=== PATIENT | female | born 2000 | race Caucasian/White ===

== ENCOUNTER 2021-05-31 08:45 | Emergency (ER) | payer MEDICAID ==
[~2021-05-31] VITALS: Ht 172.7 cm; Wt 52.6 kg
--- NOTE | 2021-05-31 09:03 | NUR ---
PATIENT WAS 13 DAYS EARLY FOR PERIOD, THEN GOT PUT ON CONTROL FOR BLEEDING/CLOTS. TODAY ARRIVES WITH ABDOMINAL PAIN NAUSEA, VOMTING, DIARREA AND VAG DISCHARGE.
--- NOTE | 2021-05-31 09:46 | NUR ---
PATIENT UNABLE AT THIS TIME FOR STOOL/URINE SAMPLE,WILL REASSESS AFTER MEDICATIONS.
--- NOTE | 2021-05-31 09:49 | NUR ---
PATIENT ON OBGYN BED AND OB CART IN NROOM
[2021-05-31] MEDS ORDERED: FAMOTIDINE 20 MG/2 ML IVPush ONE (10:00)
[2021-05-31] MEDS ORDERED: SODIUM CHLORIDE 0.9% 1,000ML IVBOLUS ONE (10:00)
[2021-05-31] MEDS ORDERED: HYDROmorphone 1 MG/ML, 1ML INJ IV ONE (10:00)
[2021-05-31] MEDS ORDERED: SODIUM CHLORIDE FLUSH 10ML SYR IVF ONE (10:00)
[2021-05-31] MEDS ORDERED: ONDANSETRON 2MG/ML, 2ML IVPush ONE ×2 (10:00→12:00)
[2021-05-31 10:09] LABS: BASOPHILS % (AUTO) 1 % (0-1); EOSINOPHILS % (AUTO) 0 % (1-7); LYMPHOCYTES % (AUTO) 10 % (22-44); MEAN CORPUSCULAR HEMOGLOBIN 31.2 pg (27.0-34.8); MEAN CORPUSCULAR HGB CONC 33.8 g/dL (32.4-35.8); MEAN PLATELET VOLUME 9.5 fL (7.4-10.4); MONOCYTES % (AUTO) 5 % (2-9); NEUTROPHILS % (AUTO) 84 % (42-75); PLATELET COUNT 289 x10^3/uL (130-400); RED BLOOD COUNT 3.76 x10^6/uL (3.82-5.3); RED CELL DISTRIBUTION WIDTH 13.3 % (9.6-15.2)
[2021-05-31] MEDS ORDERED: FAMOTIDINE 20 MG/2 ML ONE (10:12)
[2021-05-31] MEDS ORDERED: ONDANSETRON 2MG/ML, 2ML ONE ×2 (10:12→11:39)
[2021-05-31 10:13] LABS: ALANINE AMINOTRANSFERASE 24 U/L (12-78); ALBUMIN 4.1 g/dL (3.4-5.0); ANION GAP 11 mmol/L (5-15); CHLORIDE 114 mmol/L (98-107)
[2021-05-31] MEDS ORDERED: HYDROmorphone 2 MG/ML, 1ML ONE (10:13)
[2021-05-31 10:16] LABS: ALKALINE PHOSPHATASE 64 U/L (45-117); BILIRUBIN,TOTAL 0.6 mg/dL (0.2-1.0); TOTAL PROTEIN 7.3 g/dL (6.4-8.2)
[2021-05-31 10:53] LABS: AMPHETAMINE SCREEN, URINE Negative (Negative); BARBITURATE SCREEN, URINE Negative (Negative); BENZODIAZEPINE SCREEN, URINE Negative (Negative); CANNABINOID SCREEN, URINE Positive (Negative); COCAINE SCREEN, URINE Negative (Negative); METHADONE SCREEN, URINE Negative (Negative); OPIATE SCREEN, URINE Negative (Negative)
[2021-05-31 10:59] LABS: MICROSCOPIC INDICATED
--- NOTE | 2021-05-31 11:14 | NUR ---
PATIENT BACK FROM ULTRASOUND. PAIN IMPROVED IS 6/10 BUT HAVING HOT FLASHES.
[2021-05-31 11:15] VITALS: BP 119/59
== END 2021-05-31 13:30 | disposition home or self-care (01) ==
LOC: ED 12:25
DX: E28.2 Polycystic ovarian syndrome (principal)
CPT/HCPCS: 36415; 76830; 80053; 80307; 81001; 83690; 84703; 85025; 96361; 96374; 96375; 96376; 99285; J1170; J2405; J7030

== ENCOUNTER 2021-06-01 04:56 | Emergency (ER) | payer MEDICAID ==
[~2021-06-01] VITALS: Ht 172.7 cm; Wt 53.0 kg
[2021-06-01] MEDS ORDERED: HYDROmorphone 1 MG/ML, 1ML INJ IV ONE (05:30)
[2021-06-01] MEDS ORDERED: ONDANSETRON 2MG/ML, 2ML IVPush ONE (05:30)
[2021-06-01] MEDS ORDERED: SODIUM CHLORIDE FLUSH 10ML SYR IVF ONE (05:30)
--- NOTE | 2021-06-01 06:30 | NUR ---
PT PRESENTS TO ED C/O ABD PAIN AND VAGINAL BLEEDING. 1 PAD OVER 2-3 HOURS. SEEN YESTERDAY FOR SAME, RX OF HYDROCODONE, MINIMAL RELIEF. PT EXTREMELY ANXIOUS AND UNABLE TO SIT STILL IN ROOM. PIV STARTED AND MEDICATED PER EMAR. PT PLACED ON CONTINUOUS MONITORING. CALL LIGHT AND BELONGINGS WITHIN REACH. NO ADDITIONAL NEEDS AT THIS TIME. AWAITING ERP
[2021-06-01] MEDS ORDERED: ONDANSETRON 2MG/ML, 2ML ONE (06:41)
[2021-06-01] MEDS ORDERED: HYDROmorphone 2 MG/ML, 1ML ONE (06:41)
--- NOTE | 2021-06-01 07:03 | NUR ---
BEDSIDE REPORT TO TORREY WALTERS
--- NOTE | 2021-06-01 07:07 | NUR ---
RECEIVED BEDSIDE REPORT FROM KRYS WALTERS, PLAN OF CARE DISCUSSED. PT STATES PAIN IS NOW 4/10 AT THIS TIME
[2021-06-01 07:23] LABS: ALANINE AMINOTRANSFERASE 29 U/L (12-78); ANION GAP 13 mmol/L (5-15); CALCIUM 8.6 mg/dL (8.5-10.1); CHLORIDE 113 mmol/L (98-107); CREATININE 0.83 mg/dL (0.55-1.02)
[2021-06-01 07:27] LABS: BASOPHILS % (AUTO) 1 % (0-1); EOSINOPHILS % (AUTO) 1 % (1-7); LYMPHOCYTES % (AUTO) 7 % (22-44); MEAN CORPUSCULAR HGB CONC 33.9 g/dL (32.4-35.8); MEAN PLATELET VOLUME 9.3 fL (7.4-10.4); MONOCYTES % (AUTO) 6 % (2-9); NEUTROPHILS % (AUTO) 85 % (42-75); PLATELET COUNT 300 x10^3/uL (130-400); RED BLOOD COUNT 3.81 x10^6/uL (3.82-5.3); RED CELL DISTRIBUTION WIDTH 13.2 % (9.6-15.2)
[2021-06-01 07:28] LABS: ALKALINE PHOSPHATASE 66 U/L (45-117); BILIRUBIN,TOTAL 0.7 mg/dL (0.2-1.0); TOTAL PROTEIN 7.2 g/dL (6.4-8.2)
[2021-06-01 07:40] LABS: MICROSCOPIC INDICATED
[2021-06-01] MEDS ORDERED: OMNIPAQUE 350 MG/ML, 100ML BOTTLE ONE (07:45)
--- NOTE | 2021-06-01 07:48 | NUR ---
PT TO RADIOLOGY VIA [facility]
[2021-06-01 09:07] VITALS: BP 134/76
== END 2021-06-01 09:10 | disposition home or self-care (01) ==
LOC: ED 09:00
DX: N83.292 Other ovarian cyst, left side (principal); N83.291 Other ovarian cyst, right side; R11.2 Nausea with vomiting, unspecified; R19.7 Diarrhea, unspecified
CPT/HCPCS: 36415; 74177; 80053; 81001; 83690; 84703; 85025; 96374; 96375; 99285; J1170; J2405; Q9967

== ENCOUNTER 2021-06-02 04:13 | Emergency (ER) | payer MEDICAID ==
[~2021-06-02] VITALS: Ht 172.7 cm; Wt 54.0 kg
[2021-06-02 04:16] VITALS: BP 127/79
[2021-06-02 04:47] LABS: BASOPHILS % (AUTO) 0 % (0-1); EOSINOPHILS % (AUTO) 3 % (1-7); LYMPHOCYTES % (AUTO) 20 % (22-44); MEAN CORPUSCULAR HEMOGLOBIN 31.5 pg (27.0-34.8); MEAN CORPUSCULAR HGB CONC 34.8 g/dL (32.4-35.8); MEAN PLATELET VOLUME 9.1 fL (7.4-10.4); MONOCYTES % (AUTO) 9 % (2-9); NEUTROPHILS % (AUTO) 68 % (42-75); PLATELET COUNT 358 x10^3/uL (130-400); RED CELL DISTRIBUTION WIDTH 13.5 % (9.6-15.2)
[2021-06-02 05:00] LABS: ALANINE AMINOTRANSFERASE 34 U/L (12-78); ALBUMIN 4.3 g/dL (3.4-5.0); ANION GAP 10 mmol/L (5-15); CALCIUM 8.7 mg/dL (8.5-10.1); CHLORIDE 113 mmol/L (98-107); CREATININE 0.85 mg/dL (0.55-1.02)
[2021-06-02 05:04] LABS: ALKALINE PHOSPHATASE 68 U/L (45-117); BILIRUBIN,TOTAL 0.6 mg/dL (0.2-1.0); TOTAL PROTEIN 7.4 g/dL (6.4-8.2)
[2021-06-02] MEDS ORDERED: ZIPRASIDONE 20 MG INJ IM ONE ×2 (05:16→05:30)
[2021-06-02] MEDS ORDERED: SODIUM CHLORIDE 0.9% 1,000 ML IV ONE (05:30)
[2021-06-02] MEDS ORDERED: ONDANSETRON 2MG/ML, 2ML IVPush ONE (05:30)
[2021-06-02] MEDS ORDERED: SODIUM CHLORIDE FLUSH 10ML SYR IVF ONE (05:30)
[2021-06-02] MEDS ORDERED: SODIUM CHLORIDE 0.9% 1,000ML IVBOLUS ONE (05:30)
[2021-06-02] MEDS ORDERED: CAPSAICIN CRM 0.075%, 60GM TP ONE (05:30)
--- NOTE | 2021-06-02 06:59 | NUR ---
Patient/Caregiver given discharge instructions and they have confirmed that they understand the instructions. Patient ambulatory with steady gait. NAD, all questions answered appropriately, denies additional needs at this time. No personal belongings left in room after discharge.
== END 2021-06-02 07:00 | disposition home or self-care (01) ==
LOC: ED 05:39
DX: R10.84 Generalized abdominal pain (principal); R11.2 Nausea with vomiting, unspecified; F41.1 Generalized anxiety disorder; R06.4 Hyperventilation
CPT/HCPCS: 36415; 80053; 83690; 84703; 85025; 96372; 99283; J3486; Q0177